=== PATIENT | male | born 1960 | race African-American/Black ===

== ENCOUNTER 2017-03-02 05:15 | Inpatient (IN) ==
[2017-02-23 09:35] LABS: Basophils % 0.8 % (0.0-0.8); Eosinophils # 0.2 10*3/uL (0.0-0.87); Eosinophils % 4.5 % (0.00-10.9); Hematocrit 41.4 VOL% (42.0-52.0); Hemoglobin 13.6 GM/DL (14.0-18.0); Immature Granulocytes % 0.3 %; Immature Granulocytes Absolute 0.01 #; Lymphocytes # 1.1 10*3/uL (1.4-4.0); Lymphocytes % 26.5 % (21.2-54.2); Mean Corpuscular HGB Conc 32.9 GM/DL (32-36); Mean Corpuscular Hemoglobin 28 PG (27-34); Mean Corpuscular Volume 85.9 FL (87-102); Mean Platelet Volume 10.6 FL (9.6-12.0); Monocytes # 0.4 10*3/uL (0.11-0.8); Neutrophils # 2.3 10*3/uL (1.4-7.4); Neutrophils % 56.9 % (38.7-73.9); Platelet Count 177 T/CUMM (130-400); Red Blood Count 4.82 MC/CUMM (3.8-5.5)
--- NOTE | 2017-02-23 09:39 | EKG Report ---
Stationary ECG Study [facility] Test Date: 02/23/2017 9:39:15 AM Pat Name: MISA ARTIS Department: Room: Gender: M Filing Writer: MILENA 03-02-17 : 1960 Requested by: Stevan Gurrola Order Number: [id number] Delilah MD: SCOTT CANNON Intervals [place] Rate: 61 P: 63 NH: 151 QRS: 13 QRSD: 81 T: -20 QT: 385 QTc: 387 Interpretive Statements SINUS RHYTHM NONSPECIFIC T-WAVE ABNORMALITY Electronically Signed On 02-23-17 12:11:44 CDT by SCOTT CANNON [email or web address]
[2017-02-23 09:46] LABS: Apearance,Urine CLEAR (Clear); Bilirubin,Urine Negative (Negative); Blood, Urine Negative (Negative); Glucose,Urine (UA) Negative (Negative); Ketones,Urine Negative (Negative); Mucus,Urine Occasional /LPF (Occasional); Nitrite,Urine Negative (Negative); Protein,Urine Negative; RBC,Urine <1 /HPF (0-4); Urine Color Yellow (Yellow); Urine Specific Gravity 1.017 (1.001-1.035); Urine Urobilinogen < 2.0 EU/DL (0.2-1.0); WBC,Urine 2 /HPF (0-6)
[2017-02-23 09:47] LABS: PT Patient Result 10.6 SECS; Partial Thromboplastin Time 26.4 SECS (0-40)
--- NOTE | 2017-02-23 09:51 | XRay Report ---
XR chest 2V Indication: Preop evaluation Comparison: Chest x-ray dated November 26, 2016 Technique: Frontal and lateral views of the chest. Findings: The cardiomediastinal silhouette is stable in configuration. Chronic change of the lungs without focal consolidation, pleural effusion, or pneumothorax. Visualized osseous and surrounding soft tissue structures appear grossly unchanged. IMPRESSION: Stable chest x-ray without acute cardiopulmonary process demonstrated. PROCEDURE INTERPRETED AT [facility] DEPARTMENT OF RADIOLOGY Final Report Signed by: Dr Yang Hill
[2017-02-23 10:14] LABS: Albumin 3.4 G/DL (3.4-5.0); Bilirubin,Total 0.5 MG/DL (0.2-1.0); Calcium 9.3 MG/DL (8.5-10.1); Osmolality,Calculated 282.3 MOS/KG (273-304); Potassium 3.6 MMOL/L (3.5-5.1); Total Protein 7.2 G/DL (6.4-8.3)
[2017-03-02] MEDS ORDERED: VANCOMYCIN 1,000 MG VIAL ONE (05:59)
[2017-03-02] MEDS ORDERED: ceFAZolin 1,000 MG VIAL ONE (05:59)
[2017-03-02] MEDS ORDERED: SODIUM CHLORIDE 0.9% 100 ML IV ONE (06:00)
[2017-03-02] MEDS: LACTATED RINGERS 1,000 ML IV SCH ×3 (06:13→10:24)
[2017-03-02] MEDS ORDERED: VANCOMYCIN INJ 1,000 MG in SODIUM CHLORIDE 0.9% 250 ML IV ONE ×2 (06:30→18:00)
[2017-03-02] MEDS ORDERED: TRANEXAMIC ACID 1,000 MG/10 ML VIAL IV ONE (06:31)
[2017-03-02] MEDS ORDERED: BACITRACIN OINT 0.9 GM PACK TOP ONE (06:31)
[2017-03-02] MEDS ORDERED: PHENYLEPHRINE 1 MG/10 ML SYRINGE IV ONE (07:07)
[2017-03-02] MEDS ORDERED: DEXAMETHASONE 10 MG/1 ML VIAL ONE (07:07)
[2017-03-02] MEDS ORDERED: ONDANSETRON 4 MG/2 ML VIAL ONE (07:07)
[2017-03-02] MEDS ORDERED: NEOSTIGMINE 10 MG/10 ML VIAL ONE (07:07)
[2017-03-02] MEDS ORDERED: ROCURONIUM 100 MG/10 ML VIAL IV ONE (07:07)
[2017-03-02] MEDS ORDERED: GLYCOPYRROLATE 0.4 MG/2 ML VIAL ONE (07:07)
[2017-03-02] MEDS ORDERED: PROPOFOL 200 MG/20 ML VIAL IV ONE (07:07)
[2017-03-02] MEDS ORDERED: LIDOCAINE 1% 5 ML VIAL ONE (07:07)
--- NOTE | 2017-03-02 07:07 | History and Physical Update ---
History and Physical Update - History and Physical H&P was reviewed, the patient examined and there: are no changes in the patients condition since last H&P was completed. (found to be hyperglycemic on preop labs, hgbA1C 6.7. Consult for diabetes management)
--- NOTE | 2017-03-02 09:09 | Anesthesia Post-Op ---
Anesthesia Post OP - Post Ansesthetic Evaluation Patient seen in post op: Yes Resp: within normal limits CV: within normal limits Mental: within normal limits Temp: within normal limits Nhel-Lo-Ylekewgcv: within normal limits Nausea and Vomiting: within normal limits Pain: within normal limits
[2017-03-02] MEDS ORDERED: MIDAZOLAM 2 MG/2 ML VIAL ONE (09:14)
[2017-03-02] MEDS ORDERED: fentaNYL 100 MCG/2 ML VIAL ONE (09:14)
[2017-03-02] MEDS ORDERED: ACETAMINOPHEN 1,000 MG/100 ML VIAL IV ONE (09:14)
[2017-03-02] MEDS ORDERED: LACTATED RINGERS 1,000 ML IV ONE (09:14)
[2017-03-02] MEDS ORDERED: SEVOFLURANE 1 UNIT/15 MINUTE INH ONE (09:14)
[2017-03-02 09:16] LABS: Apearance,Urine CLEAR (Clear); Bilirubin,Urine Negative (Negative); Blood, Urine Moderate mg/dL (Negative); Glucose,Urine (UA) Negative (Negative); Ketones,Urine Negative (Negative); Mucus,Urine Occasional /LPF (Occasional); Nitrite,Urine Negative (Negative); Protein,Urine Negative; RBC,Urine 59 /HPF (0-4); Squamous Epithelial Cell,Urine Occasional /HPF (0-10); Urine Color Yellow (Yellow); Urine Specific Gravity 1.011 (1.001-1.035); Urine Urobilinogen < 2.0 EU/DL (0.2-1.0); WBC,Urine 1 /HPF (0-6)
[2017-03-02] MEDS ORDERED: DEXTROSE 50% 25 GM/50 ML VIAL IV PRN ×2 (09:25→14:02)
[2017-03-02] MEDS ORDERED: GLUCAGON 1 MG VIAL IM PRN ×2 (09:25→14:02)
[2017-03-02] MEDS ORDERED: ZALEPLON 5 MG CAPSULE PO PRN (09:26)
[2017-03-02] MEDS ORDERED: MAGNESIUM HYDROXIDE SUSP 30 ML UDCUP PO PRN (09:26)
[2017-03-02] MEDS ORDERED: oxyCODONE IR 5 MG TABLET PO PRN ×2 (09:26)
[2017-03-02] MEDS ORDERED: ONDANSETRON 4 MG/2 ML VIAL IV PRN (09:26)
[2017-03-02] MEDS ORDERED: MORPHINE 2 MG/1 ML SYRINGE IV PRN ×2 (09:26)
--- NOTE | 2017-03-02 09:33 | Operative Note ---
Date of procedure: 03/02/17 Procedure: DIAGNOSIS: Right hip primary osteoarthritis PROCEDURE: Right total hip arthroplasty (CPT#85551) SURGEON: Rod ASST: Tommie Acevedo ANESTHESIA: Spinal converted to general PROCEDURE and FINDINGS: After adequate anesthesia was induced, the patient was placed in lateral decubitus position. Left lower extremities prepped and draped in usual sterile fashion. Posteriolateral approach to the hip was made. Skin, subcutaneous tissue and deep fascia was incised longitudinally. Gluteus claudette muscle belly was split in line with its fibers. Piriformis, external rotators and capsule were taken down as a single layer as an inverted L shaped capsulotomy. Hip was dislocated. Templated femoral neck cut was made. Acetabulum was prepared by sequentially reaming to 55 mm. A 56 mm Continuum acetabular shell was press-fit with excellent stability. 1 6.5 millimeter screw was placed with an excellent bite. 32 mm elevated rim longevity liner was placed with a dome hole plug. Femur was prepared sequentially with the box osteotome, canal finder and sequential broaches to 15. Components were trialed. A size 15 Versys fiber metal tapered stem was press-fit. A 32+0 mm head was placed. The component was stable posteriorly and anteriorly. Capsule was repaired with #5 Tycron. Deep fascia was closed with 0 Vicryl [id number] suture. Subcutaneous tissue was closed deep with a 2-0 Vicryl runner and superficially with 3-0 interrupted buried sutures. Skin was closed with carin. Bacitracin and a sterile occlusive dressing was applied. Surgeon / Physician: Stevan Velasco Jr. Results - Labs CBC & BMP: 02/23/17 09:25 02/23/17 09:25 Discharge Plan - Discharge Medications No Action Aspirin 81 mg PO DAILY Acetaminophen Tab [Tylenol Tab] 325 mg PO Q6HR PRN PRN Reason: Pain amLODIPine [Norvasc] 5 mg PO DAILY - Follow Up or Referral - Forms/Instructions
--- NOTE | 2017-03-02 10:21 | XRay Report ---
XR hip 1V RT Indication: Joint replacement (right hip) Comparison: Left hip x-ray dated December 03, 2016 Technique: Single frontal view of the right hip Findings: Status post total right hip arthroplasty. No evidence of immediate hardware failure. Superficial skin carin overlie the hip. Subcutaneous and joint space air noted which is likely postoperative. Left total hip arthroplasty partially visualized. IMPRESSION: Status post total right hip arthroplasty. PROCEDURE INTERPRETED AT [facility] DEPARTMENT OF RADIOLOGY Final Report Signed by: Dr Yang Hill
[2017-03-02] MEDS: diphenhydrAMINE CAP 25 MG CAPSULE PO PRN (10:24)
[2017-03-02] MEDS: KETOROLAC 30 MG/1 ML VIAL IV SCH ×3 (10:24→22:05)
[2017-03-02] MEDS: INSULIN LISPRO 100 UNIT/ML SUBCUT SCH ×3 (11:32→21:10)
[2017-03-02] MEDS: ACETAMINOPHEN 500 MG TABLET PO SCH ×2 (13:11→20:26)
[2017-03-02] MEDS: ceFAZolin 2,000 MG in PREMIX 1 EACH IV SCH ×2 (13:13→22:10)
--- NOTE | 2017-03-02 13:56 | Hospitalist Consult Note ---
Assessment and Plan (1) Hemoglobin A1c less than 7.0% Status: Acute Assessment and plan: Patient's hemoglobin A1c was noted at 6.7. The patient reports no previous diagnosis of diabetes; however reports a strong family history of diabetes. During the clinical encounter, the patient's blood glucose levels have been greater than 120. We will start Accu-Cheks with sliding scale coverage and consult diabetes management. Current Visit: Yes History of Present Illness - Consult Narrative Reason for consult: Diabetes Management History of present illness: This is a very pleasant 56-year-old male that presented to [facility] for an elective right total hip arthroplasty. The patient has a medical history significant for hypertension, renal calculi, and osteoarthritis. The patient has a surgical history significant for left total hip arthroplasty. During the preop evaluation, the patient was noted to have a hemoglobin A1c of 6.7. Postoperatively, the patient was noted to have elevations in his glucose levels. The hospitalist group was consulted to assist in the medical management of the patient's diabetes. Upon interview, the patient reported that he has never been officially diagnosed with diabetes mellitus. He reports a strong family history of diabetes mellitus including both parents and multiple siblings. CC: Stevan Velasco Jr., - Home Medications and Allergies Home Medications: Home Medications Medication Instructions Recorded Confirmed Type Aspirin 81 mg PO DAILY 12/14/16 03/02/17 History Acetaminophen Tab [Tylenol Tab] 325 mg PO Q6HR PRN 02/23/17 03/02/17 History amLODIPine [Norvasc] 5 mg PO DAILY 03/02/17 03/02/17 History Allergies/Adverse Reactions: Allergies Allergy/AdvReac Type Severity Reaction Status Date / Time No Known Allergies Allergy Verified 02/23/17 09:08 Medical,Surgical,& Family Hx - Medical History Cardio: History of: Hypertension (PT STATES HE WAS TAKING DUE TO PAIN BP ELEVATED.) Neurology: No history of: Seizures HEENT: History of: Eye Problem (READING GLASSES) Respiratory: No history of: Respiratory Problems (FLU VAC- NO;PNEU VAC- NO.) Genitourinary: History of: Kidney Stones (left) Gastrointestinal: History of: GI Problems (constipation) Musculoskeletal: History of: Musculoskeletal Problems (arthritis) - Surgical History Thoracic Surgeries: Surgical HX of;: Lithotripsy (06-16-15) Orthopedic Surgeries: Surgical HX of;: Total Hip Replacement (left 2017; RIGHT ) - Family History Family History: Reports;: Family Diabetes (PARENTS), Family Hypertension (MOTHER ,FATHER) - Social History Smoking Status: Never smoker Frequency of Alcohol Use: None Type of Drug Use: None 12 point system: reviewed and no additional remarkable complaints except as stated Exam - Constitutional Vitals: Period Temp Pulse Resp BP Sys/Grande Pulse Ox Last 24 Hr 97.3 F-98.7 F 46-84 16-20 84-166/56-93 97-100 General appearance: normal weight, no acute distress - Head Head exam: Present: normal inspection, normocephalic - Eye Eye exam: Present: EOMI. Absent: conjunctival injection Pupils: Present: DELICIA, normal accommodation - ENT ENT exam: Present: normal exam, normal external ear exam, normal oropharynx - Neck Neck exam: Present: normal inspection. Absent: lymphadenopathy, meningismus, thyromegaly - Respiratory Respiratory exam: Present: clear to auscultation bilaterally. Absent: rales, rhonchi, stridor, wheezes - Cardiovascular Cardiovascular exam: Present: regular rate and rhythm. Absent: carotid bruit, diastolic murmur, gallop, JVD, rubs, systolic murmur - GI/Abdominal GI/Abdominal exam: Present: normal bowel sounds, soft - Extremities Exam Extremities exam: Present: normal inspection - Back Exam Back exam: Present: normal inspection - Neurological Exam Neurological exam: Present: alert, CN II-XII intact - Psychiatric Psychiatric exam: Present: normal affect, normal mood - Skin Skin exam: Present: normal color, warm, dry Results - Labs CBC & BMP: 02/23/17 09:25 02/23/17 09:25 Lab Results: I have reviewed the past 24 hour labs
[2017-03-02] MEDS: INSULIN REGULAR 100 UNIT/ML SUBCUT SCH ×2 (15:55→21:10)
--- NOTE | 2017-03-02 16:25 | Orthopedic Progress Note ---
Orthopedics - Subjective Interval history: Comfortable. Sitting in a chair. Right lower extremity neurovascularly unchanged. Dressing dry. Plan: Continue per protocol. Hospitalist service consulted for diabetic management. Exam - Constitutional Vitals: Period Temp Pulse Resp BP Sys/Grande Pulse Ox Last 24 Hr 97.3 F-98.7 F 46-84 16-20 84-166/56-93 97-100 Results - Labs CBC & BMP: 02/23/17 09:25 02/23/17 09:25
[2017-03-02] MEDS: DOCUSATE SODIUM 100 MG CAPSULE PO SCH (20:26)
[2017-03-02] MEDS ORDERED: DEXTROSE 50% 25 GM/50 ML SYRINGE IV PRN (22:30)
[2017-03-03] MEDS: ACETAMINOPHEN 500 MG TABLET PO SCH ×2 (01:35→07:52)
[2017-03-03] MEDS: diphenhydrAMINE CAP 25 MG CAPSULE PO PRN (01:40)
[2017-03-03] MEDS: LACTATED RINGERS 1,000 ML IV SCH ×3 (03:00→06:38)
[2017-03-03] MEDS: FONDAPARINUX 2.5 MG/0.5 ML SYRINGE SUBCUT SCH (05:01)
[2017-03-03] MEDS: KETOROLAC 30 MG/1 ML VIAL IV SCH (05:01)
[2017-03-03 05:42] LABS: Basophils % 0.1 % (0.0-0.8); Hematocrit 35.9 VOL% (42.0-52.0); Hemoglobin 12.1 GM/DL (14.0-18.0); Immature Granulocytes % 0.7 %; Immature Granulocytes Absolute 0.09 #; Lymphocytes % 7.3 % (21.2-54.2); Mean Corpuscular HGB Conc 33.7 GM/DL (32-36); Mean Corpuscular Hemoglobin 28 PG (27-34); Mean Corpuscular Volume 83.9 FL (87-102); Mean Platelet Volume 10.9 FL (9.6-12.0); Monocytes # 0.9 10*3/uL (0.11-0.8); Monocytes % 7.1 % (1.7-12.7); Neutrophils # 11.2 10*3/uL (1.4-7.4); Neutrophils % 84.8 % (38.7-73.9); Platelet Count 176 T/CUMM (130-400); Red Blood Count 4.28 MC/CUMM (3.8-5.5); Red Cell Distribution Width 13.1 % (9.3-17.3); White Blood Count 13.2 T/CUMM (4-12)
[2017-03-03 06:08] LABS: Osmolality,Calculated 276.5 MOS/KG (273-304); Potassium 4.3 MMOL/L (3.5-5.1)
[2017-03-03] MEDS: INSULIN LISPRO 100 UNIT/ML SUBCUT SCH ×4 (08:02→20:49)
[2017-03-03] MEDS: DOCUSATE SODIUM 100 MG CAPSULE PO SCH ×2 (08:02→20:48)
[2017-03-03] MEDS: amLODIPine 5 MG TABLET PO SCH (08:02)
[2017-03-03] MEDS: INSULIN REGULAR 100 UNIT/ML SUBCUT SCH ×4 (08:02→20:48)
--- NOTE | 2017-03-03 08:51 | Orthopedic Progress Note ---
Orthopedics - Subjective Interval history: Comfortable. Dressing clean, dry and intact. Right lower extremity is neurovascularly unchanged. Plan: Continue with physical therapy. Anticipate discharge home either Tuesday or Tuesday. Exam - Constitutional Vitals: Period Temp Pulse Resp BP Sys/Grande Pulse Ox Last 24 Hr 97.3 F-98.2 F 46-84 16-20 84-152/56-90 95-100 Results - Labs CBC & BMP: 03/03/17 04:19 03/03/17 04:19
--- NOTE | 2017-03-03 11:20 | Pathology Report from [facility] ---
[facility] ACCESSION # : [id number] PATIENT NAME : Adonis Cox ORDERING DR : RAJ HAY MD CLINICAL HX: Right hip osteoarthritis POST-OP DX: Same SPECIMEN INFO: Right hip bone and tissue GROSS DESCRIPTION: The specimen is received in formalin labeled with the patients name and consists of a femoral head measuring 5.2 x 5.2 x 5.7 cm. The articular surfaces are focally degenerative with a large area of subchondral eburnation seen measuring 4.2 x 3.5 cm. The surgical margins are smooth with no softening appreciated. Received separately in the container are multiple fragments of hemorrhagic bone and soft tissue measuring 12.0 x 3.0 cm in aggregate. Supervising Editor Trailer tissue submitted in one cassette following decalcification. DIAGNOSIS FOR ADONIS COX: RIGHT HIP BONE & TISSUE, TOTAL REPLACEMENT: Osteoarthritis. COLLECTED DATE: 03/02/2017 [facility] REPORT DATE: 03/03/2017 ELECTRONICALLY SIGNED BY: Dave Harrison M.D. 03/03/2017 - 10:04:38 OMER
--- NOTE | 2017-03-03 14:08 | Hospitalist Progress Note ---
Assessment and Plan (1) Status post hip replacement Status: Acute Current Visit: No (2) Hypertension Status: Acute Assessment and plan: The patient has essential hypertension. The patient will continue usual home regimen and the patient will avoid high carbohydrate foods. Current Visit: Yes Hospitalist: Subjective Interval history: The patient is admitted to the hospital for orthopedic surgery. The patient has mildly elevated blood glucose and was given further instruction about avoiding high carbohydrate foods and beverages. Exam - Constitutional Vitals: Period Temp Pulse Resp BP Sys/Grande Pulse Ox Last 24 Hr 97.8 F-98.6 F 55-68 17-20 124-152/71-90 94-99 General appearance: no acute distress - Respiratory Respiratory exam: Present: clear to auscultation bilaterally - Cardiovascular Cardiovascular exam: Present: regular rate and rhythm Results - Labs CBC & BMP: 03/03/17 04:19 03/03/17 04:19 Lab Results: I have reviewed the past 24 hour labs
[2017-03-03] MEDS: CELECOXIB 200 MG CAPSULE PO SCH (17:20)
[2017-03-04 05:19] LABS: Basophils % 0.2 % (0.0-0.8); Eosinophils # 0.1 10*3/uL (0.0-0.87); Eosinophils % 1.4 % (0.00-10.9); Hematocrit 32.4 VOL% (42.0-52.0); Hemoglobin 10.8 GM/DL (14.0-18.0); Immature Granulocytes % 0.7 %; Immature Granulocytes Absolute 0.06 #; Lymphocytes # 1.3 10*3/uL (1.4-4.0); Mean Corpuscular HGB Conc 33.3 GM/DL (32-36); Mean Corpuscular Hemoglobin 28 PG (27-34); Mean Corpuscular Volume 85.3 FL (87-102); Mean Platelet Volume 10.8 FL (9.6-12.0); Monocytes # 0.7 10*3/uL (0.11-0.8); Monocytes % 8.3 % (1.7-12.7); Neutrophils # 6.2 10*3/uL (1.4-7.4); Neutrophils % 73.4 % (38.7-73.9); Platelet Count 148 T/CUMM (130-400); Red Cell Distribution Width 13.5 % (9.3-17.3); White Blood Count 8.4 T/CUMM (4-12)
[2017-03-04] MEDS: FONDAPARINUX 2.5 MG/0.5 ML SYRINGE SUBCUT SCH (05:42)
--- NOTE | 2017-03-04 07:45 | Discharge Summary ---
Hospital Course - Hospital Course Hospital Course: Mr. Cox was admitted after undergoing an uncomplicated right total hip replacement. He received perioperative DVT and antimicrobial prophylaxis and physical therapy. The hospitalist service was consulted for diabetes management. Patient was deemed a inpatient rehabilitation candidate and was discharged to [facility] in stable condition. His dressing is clean, dry and intact. Left lower extremity is neurovascularly unchanged. Discharge Plan - Discharge Data Disposition: Disch/Xfer to Snf Condition at Discharge: Stable Discharge Diet: diabetic diet Hygiene: may shower Weight Bearing at Discharge: weight bear as tolerated Driving: not until seen by doctor - Discharge Medications New Docusate Sodium Cap [Colace Cap] 100 mg PO BID capsule Fondaparinux [Arixtra] 2.5 mg SUBCUT Q24H syringe HYDROcodone/ACETAMIN 7.5-325 [[place] 7.5-325] 2 tablet PO Q4H PRN tablet PRN Reason: Moderate Pain unrelieved by 1 HYDROcodone/ACETAMIN 7.5-325 [[place] 7.5-325] 1 tablet PO Q4H PRN tablet PRN Reason: Pain Moderate (4-7) Insulin Regular [HumuLIN R] See Protocol SUBCUT ACHS unit Continue Acetaminophen Tab [Tylenol Tab] 325 mg PO Q6HR PRN PRN Reason: Pain amLODIPine [Norvasc] 5 mg PO DAILY Discontinued Aspirin 81 mg PO DAILY - Follow Up or Referral - Forms/Instructions Additional Discharge Instructions: Get discharge instructions regarding diabetes from hospitalist service. Posterior hip precautions for 3 months. Daily dry dressing changes. Arrange for walker and bedside commode for home use. Wear YARITZA hose for 1 month. Follow-up appointment in 4 weeks. Discontinue carin and Steri-Strip wound on March 14, 2017. Prescription for [place] 7.5 was written. Stop Arixtra when discharged from [facility], restart aspirin 325 mg by mouth daily then. Exam - Constitutional Vitals: Period Temp Pulse Resp BP Sys/Grande Pulse Ox Last 24 Hr 97.6 F-98.6 F 58-84 17-19 124-162/69-94 91-96 Discharge Results Procedures and tests throughout hospitalization: Pending Orders 03/05/17 04:00 Comp Blood Count Auto Diff IN AM Labs on day of discharge: Labs from last 24 hours 03/04/17 03/04/17 03/03/17 06:45 04:22 19:55 WBC 8.4 D RBC 3.80 Hgb 10.8 L Hct 32.4 L MCV 85.3 L MCH 28 MCHC 33.3 RDW 13.5 Plt Count 148 MPV 10.8 Neut % (Auto) 73.4 Lymph % (Auto) 16.0 L Storey % (Auto) 8.3 Eos % (Auto) 1.4 Baso % (Auto) 0.2 Neut # (Auto) 6.2 Lymph # (Auto) 1.3 L [place]y # (Auto) 0.7 Eos # (Auto) 0.1 Baso # (Auto) 0.0 Immature Gran % 0.7 Nucleated RBC % 0.0 Immature Gran # 0.06 Nucleated RBCs # 0.00 Immature Plt Fraction 0.0 POC Glucose 109 H 194 H 03/03/17 03/03/17 15:35 10:41 WBC RBC Hgb Hct MCV MCH MCHC RDW Plt Count MPV Neut % (Auto) Lymph % (Auto) Storey % (Auto) Eos % (Auto) Baso % (Auto) Neut # (Auto) Lymph # (Auto) Storey # (Auto) Eos # (Auto) Baso # (Auto) Immature Gran % Nucleated RBC % Immature Gran # Nucleated RBCs # Immature Plt Fraction POC Glucose 147 H 158 H DS: Provider Date of admission: 03/02/17 05:15 Primary care physician: AMY QUARLES NP Attending physician on admission: Stevan Velasco Jr., Consults: 03/02/17 09:26 Consult to Case Mgmt/Social Srvs [CONS] Routine Reason for Case Mgmt/Social Srvs: Rehab Home Health Equipment Consult Comment: Bedside Commode, CPM, Walker Consult to Occupational Therapy [CONS] Routine Reason for Occupational Therapy: Evaluate and Treat Consult Comment: ADL's Consult to Physical Therapy [CONS] Routine Reason for Physical Therapy: Evaluate and Treat Gait Training Start Therapy: Today Consult Comment: wbat, hip precautions 03/02/17 10:05 Consult to Physician [CONS] Routine Comment: Consulting Provider: Consulting Provider Notified: Yes When should Consulting Provider be notified: Now Consult to Specialist Group: Hospitalist Person Notified: zeke raymundo Date Notified: 03/02/17 Time Notified: 11:06 03/02/17 11:22 Consult to Diabetes [facility], Educator [CONS] Routine Reason for Emergency Communications Operator: Diabetes Education Consult Comment: BLOOD SUGAR HIGH, NO DIAGNOSIS OF DIABETES, REQUEST EDUCATION Discharging clinician: Stevan Velasco Jr., Expected date of discharge: 03/04/17
[2017-03-04] MEDS: INSULIN LISPRO 100 UNIT/ML SUBCUT SCH ×2 (08:41→11:12)
[2017-03-04] MEDS: DOCUSATE SODIUM 100 MG CAPSULE PO SCH (08:41)
[2017-03-04] MEDS: amLODIPine 5 MG TABLET PO SCH (08:41)
[2017-03-04] MEDS: INSULIN REGULAR 100 UNIT/ML SUBCUT SCH ×2 (08:41→11:12)
[2017-03-04] MEDS: CELECOXIB 200 MG CAPSULE PO SCH (08:41)
[2017-03-04 11:18] VITALS: BP 150/89
== END 2017-03-04 13:25 | DRG 470 ==
LOC: N.SDSINP 05:15 → N.3E 08:17
PROVIDERS: ADMIT Orthopaedic Surgery; ATTEND Orthopaedic Surgery